=== PATIENT | female | born 1935 | race Native Hawaiian/Other Pacific Islander ===

== ENCOUNTER 2017-05-24 15:24 | Emergency (ER) | payer MEDICARE, OTHER ==
[2017-05-24 15:25] VITALS: BMI 22.4
--- NOTE | 2017-05-24 15:38 | ED PDOC ---
Arrival/HPI - General Chief Complaint: Trauma Time Seen by Provider: 05/24/17 15:27 Historian: Patient, Family (Daughter) - History of Present Illness Time/Duration: Prior to Arrival Symptom Onset: Sudden Symptom Course: Unchanged Severity Level: Mild Associated Symptoms (Text): 05/24/17 15:35 Patient reports that she was in the bathroom reaching over for some toilet paper when she lost her balance slipped and fell with a mechanical fall backwards into the shower knocking the shower curtain and the curtain michelle to the ground. She injured her right hip and right hand and head. No loss of consciousness syncope dizziness lightheadedness numbness tingling or paresthesias. No neck or low back pain. No chest pain palpitations or dyspnea. No abdominal pain nausea or vomiting. No other injury or trauma. Past Medical History - Infectious Disease Hx of Infectious Diseases: None - Tetanus Immunization Tetanus Immunization: Unknown - Reproductive Menopause: Yes - Cardiac Hx Hypertension: Yes Hx Pacemaker: No - Neurological Hx Paralysis: No - Endocrine/Metabolic Hx Diabetes Mellitus Type 2: Yes - Hematological/Oncological Hx Blood Transfusions: No - Musculoskeletal/Rheumatological Hx Musculoskeletal Disorders: No - Psychiatric Hx Emotional Abuse: No Hx Physical Abuse: No Hx Substance Use: No - Surgical History Hx Coronary Stent: Yes - Anesthesia Hx Anesthesia: Yes Hx Anesthesia Reactions: No Hx Malignant Hyperthermia: No - Suicidal Assessment Feels Threatened In Home Enviroment: No Family/Social History - Physician Review Nursing Documentation Reviewed: Yes Family/Social History: Unknown Family HX Smoking Status: Never Smoked Hx Alcohol Use: No Hx Substance Use: No Hx Substance Use Treatment: No Allergies/Home Meds Allergies/Adverse Reactions: Allergies No Known Allergies Allergy (Verified 05/24/17 15:34) Home Medications: Home Meds Medication Instructions Recorded Confirmed Aspirin 81 mg PO HS 01/23/13 05/24/17 Atorvastatin [Lipitor] 10 mg PO HS 01/23/13 05/24/17 Losartan Potassium 100 mg PO DAILY 01/23/13 05/24/17 Metformin Hydrochloride [Metformin] 500 mg PO BID 01/23/13 05/24/17 Metoprolol Succinate 100 mg PO DAILY 01/23/13 05/24/17 Review of Systems - Physician Review All systems were reviewed & negative as marked: Yes - Review of Systems Constitutional: Normal Respiratory: Normal Cardiovascular: Normal Gastrointestinal: Normal Genitourinary Female: Normal Neurological: Normal Physical Exam Vital Signs Temp Pulse Resp BP Pulse Ox 05/24/17 16:22 97.6 F 05/24/17 15:25 67 16 153/70 H 100 Temperature: Afebrile Blood Pressure: Hypertensive Pulse: Regular Respiratory Rate: Normal Appearance: Positive for: Well-Appearing, Non-Toxic, Comfortable Pain Distress: Mild Mental Status: Positive for: Alert and Oriented X 3 - Systems Exam Head: Present: Atraumatic, Normocephalic Pupils: Present: PERRL Extroacular Muscles: Present: EOMI Conjunctiva: Present: Normal Ears: Present: NORMAL TM, Normal Canal. No: Erythema Mouth: Present: Moist Mucous Membranes Pharnyx: No: ERYTHEMA, EXUDATE, TONSILS ENLARGED Neck: Present: Normal Range of Motion Respiratory/Chest: Present: Clear to Auscultation, Good Air Exchange. No: Respiratory Distress, Accessory Muscle Use, Tender to Palpation Cardiovascular: Present: Regular Rate and Rhythm, Normal S1, S2. No: Murmurs Abdomen: Present: Normal Bowel Sounds. No: Tenderness, Distention, Peritoneal Signs, Rebound, Guarding Back: Present: Normal Inspection. No: CVA Tenderness, Midline Tenderness, Paraspinal Tenderness Upper Extremity: Present: Normal ROM, NORMAL PULSES, Neurovascularly Intact, Other (Right fifth metacarpal ecchymosis with no tenderness no swelling and full range of motion). No: Cyanosis, Edema, Tenderness, Swelling, Erythema, Deformity Lower Extremity: Present: Normal Inspection, Normal ROM, Tenderness, Neurovascularly Intact, Other (Plus\minus left posterior lateral hip tenderness with no swelling and no skin changes. Full range of motion.). No: Edema, CALF TENDERNESS, Swelling, Erythema, Deformity Neurological: Present: GCS=15, CN II-XII Intact, Speech Normal, Motor Func Grossly Intact, Normal Cerebellar Funct Skin: Present: Warm, Dry, Normal Color. No: Rashes Medical Decision Making - RAD Interpretation Radiology Orders: 05/24/17 15:33 Hip Right [HIP MIN 2V W/ PELVIS RT] [RAD] Stat 05/24/17 15:34 HEAD W/O CONTRAST [CT] Stat HAND RIGHT 3 VIEWS [RAD] Stat CT scan of the head is read by the radiologist shows no acute findings. Right hand 3 view shows no fracture or dislocation. Right hip and pelvis shows no fracture or dislocation. [employer]: Radiologist Disposition/Present on Arrival - Present on Arrival Any Indicators Present on Arrival: No History of DVT/PE: No History of Uncontrolled Diabetes: No Urinary Catheter: No History of Decub. Ulcer: No History Surgical Site Infection Following: None - Disposition Have Diagnosis and Disposition been Completed?: Yes Diagnosis: Head contusion, Hand contusion, Contusion, hip Disposition: HOME/ ROUTINE Disposition Time: 16:43 Patient Plan: Discharge Condition: GOOD Discharge Instructions (ExitCare): Contusion (DC) Additional Instructions: Rest and ice. Tylenol or Advil as directed on bottle as needed. Fill prescription for Ultram as needed. Follow-up with PMD. Follow up in ER as needed. Prescriptions: Tramadol HCl [Ultram] 50 mg PO Q6 PRN #14 tab PRN Reason: Pain Forms: [facility] (Czech)
--- NOTE | 2017-05-24 16:13 | CT ---
PROCEDURE: CT HEAD WITHOUT CONTRAST. HISTORY: trauma COMPARISON: Comparison is made with 01/23/2013 TECHNIQUE: Axial computed tomography images were obtained through the head/brain without intravenous contrast. Radiation dose: Total exam DLP = 741.61 mGy-cm. This CT exam was performed using one or more of the following dose reduction techniques: Automated exposure control, adjustment of the mA and/or kV according to patient size, and/or use of iterative reconstruction technique. FINDINGS: HEMORRHAGE: No intracranial hemorrhage. BRAIN: No mass effect or edema. Lwyl-nt-mfkxtryl atrophy is noted. Mild chronic microvascular white matter ischemic disease is also noted. VENTRICLES: Unremarkable. No hydrocephalus. CALVARIUM: Unremarkable. PARANASAL SINUSES: Unremarkable as visualized. No significant inflammatory changes. MASTOID AIR CELLS: Unremarkable as visualized. No inflammatory changes. OTHER FINDINGS: None. IMPRESSION: O evidence of acute intracranial hemorrhage mass effect or midline shift.
[2017-05-24 16:22] VITALS: TEMP 97.6
[2017-05-24 17:04] VITALS: BP 165/57; PULSE 62; RESP 18; O2SAT 97
--- NOTE | 2017-05-24 19:40 | RAD ---
PROCEDURE: Right Hip Radiographs. HISTORY: fall COMPARISON: None. FINDINGS: BONES: Normal. No fracture. JOINTS: Omnx-ja-ghzemkib osteoarthritic changes. SOFT TISSUES: Normal. OTHER FINDINGS: None. IMPRESSION: No evidence of acute fracture or dislocation.
--- NOTE | 2017-05-24 21:48 | RAD ---
PROCEDURE: Right Hand Radiographs. HISTORY: trauma COMPARISON: None. FINDINGS: BONES: Normal. No fracture. JOINTS: Arthritic degenerative changes are noted. SOFT TISSUES: Normal. OTHER FINDINGS: None. IMPRESSION: No evidence of acute fracture or dislocation. Arthritic degenerative changes.
== END 2017-05-24 17:05 | disposition home or self-care (01) ==
LOC: ED 15:24
DX: S70.01XA Contusion of right hip, initial encounter (principal); S60.221A Contusion of right hand, initial encounter; S00.93XA Contusion of unspecified part of head, initial encounter; W18.2XXA Fall in (into) shower or empty bathtub, initial encounter; I10 Essential (primary) hypertension; E11.9 Type 2 diabetes mellitus without complications

== ENCOUNTER 2017-09-07 05:50 | Day surgery (SDC) | payer OTHER ==
--- NOTE | 2017-09-07 06:07 | ED PDOC ---
Arrival/HPI - General Chief Complaint: Chest Pain Time Seen by Provider: 09/07/17 06:03 Historian: Patient, Family (Daughter) - History of Present Illness Narrative History of Present Illness (Text): 09/07/17 06:07 Fany Noriega is an 81 year old female, whose past medical history includes CAD with 3 coronary stents, hypertension, hyperlipidemia, and diabetes, who presents to the Emergency department complaining of chest pain. Patient states she began experiencing mid-sternal chest pain with associated shortness of breath for the past 3 hours. Patient denies any fever, chills, nausea, vomiting , back pain, neck pain, headache, dizziness, lower extremity pain, or any other complaints. Time/Duration: 1-3 hours (3 hours [employer]) Symptom Onset: Gradual Symptom Course: Unchanged Activities at Onset: Light Context: Home Past Medical History - Provider Review Nursing Documentation Reviewed: Yes - Infectious Disease Hx of Infectious Diseases: None - Tetanus Immunization Tetanus Immunization: Unknown - Cardiac Hx Hypertension: Yes Hx Pacemaker: No - Neurological Hx Paralysis: No - Endocrine/Metabolic Hx Diabetes Mellitus Type 2: Yes - Hematological/Oncological Hx Blood Transfusions: No - Musculoskeletal/Rheumatological Hx Musculoskeletal Disorders: No - Psychiatric Hx Emotional Abuse: No Hx Physical Abuse: No Hx Substance Use: No - Surgical History Hx Coronary Stent: Yes - Anesthesia Hx Anesthesia: Yes Hx Anesthesia Reactions: No Hx Malignant Hyperthermia: No - Suicidal Assessment Feels Threatened In Home Enviroment: No Family/Social History - Physician Review Nursing Documentation Reviewed: Yes Family/Social History: Unknown Family HX Smoking Status: Never Smoked Hx Alcohol Use: No Hx Substance Use: No Hx Substance Use Treatment: No Allergies/Home Meds Allergies/Adverse Reactions: Allergies No Known Allergies Allergy (Verified 05/24/17 15:34) Home Medications: Home Meds Medication Instructions Recorded Confirmed Aspirin 81 mg PO HS 01/23/13 09/07/17 Atorvastatin [Lipitor] 10 mg PO HS 01/23/13 09/07/17 Losartan Potassium 100 mg PO DAILY 01/23/13 09/07/17 Metformin Hydrochloride [Metformin] 500 mg PO BID 01/23/13 09/07/17 Metoprolol Succinate 100 mg PO DAILY 01/23/13 09/07/17 Review of Systems - Physician Review All systems were reviewed & negative as marked: Yes - Review of Systems Constitutional: Normal. absent: Fevers Eyes: Normal ENT: Normal Respiratory: SOB. absent: Cough Cardiovascular: Chest Pain Gastrointestinal: Normal. absent: Abdominal Pain, Diarrhea, Nausea, Vomiting Genitourinary Female: Normal. absent: Dysuria, Frequency, Hematuria, Urine Output Changes Musculoskeletal: Normal. absent: Back Pain, Neck Pain Skin: Normal. absent: Rash Neurological: Normal. absent: Headache, Dizziness Endocrine: Normal Hemo/Lymphatic: Normal Psychiatric: Normal Physical Exam Vital Signs Reviewed: Yes Temperature: Afebrile Blood Pressure: Normal Pulse: Regular Respiratory Rate: Normal Appearance: Positive for: Well-Appearing, Non-Toxic, Comfortable Pain Distress: None Mental Status: Positive for: Alert and Oriented X 3 - Systems Exam Head: Present: Atraumatic, Normocephalic Pupils: Present: PERRL Extroacular Muscles: Present: EOMI Conjunctiva: Present: Normal Mouth: Present: Moist Mucous Membranes Neck: Present: Normal Range of Motion Respiratory/Chest: Present: Clear to Auscultation, Good Air Exchange. No: Respiratory Distress, Accessory Muscle Use Cardiovascular: Present: Regular Rate and Rhythm, Normal S1, S2. No: Murmurs Abdomen: No: Tenderness, Distention, Peritoneal Signs Back: Present: Normal Inspection Upper Extremity: Present: Normal Inspection. No: Cyanosis, Edema Lower Extremity: Present: Normal Inspection. No: Edema Neurological: Present: GCS=15, CN II-XII Intact, Speech Normal Skin: Present: Warm, Dry, Normal Color. No: Rashes Psychiatric: Present: Alert, Oriented x 3, Normal Insight, Normal Concentration Medical Decision Making ED Course and Treatment: 09/07/17 06:07 Impression: 81 year old female presents for chest pain and shortness of breath for 3 hours prior to arrival. Plan: -- EKG -- Chest X-ray -- Labs, cardiac enzymes, BNP, D-dimer -- Aspirin -- Reassess and disposition Progress Notes: Reviewed EKG, NSR at [address] Non-specific ST/T wave changes. 09/07/17 07:00 Case endorsed to /pending labs/CXR/reassess/final disposition - RAD Interpretation Radiology Orders: 09/07/17 06:11 CHEST PORTABLE [RAD] Stat - EKG Interpretation Interpreted by ED Physician: Yes Type: 12 lead EKG - Medication Orders Current Medication Orders: Discontinued Medications Aspirin (Aspirin) 325 mg PO ONCE STA Stop: 09/07/17 06:13 - Scribe Statement The provider has reviewed the documentation as recorded by the Peg Colon Provider Scribe Attestation: All medical record entries made by the Scribe were at my direction and personally dictated by me. I have reviewed the chart and agree that the record accurately reflects my personal performance of the history, physical exam, medical decision making, and the department course for this patient. I have also personally directed, reviewed, and agree with the discharge instructions and disposition. Disposition/Present on Arrival - Present on Arrival Any Indicators Present on Arrival: No History of DVT/PE: No History of Uncontrolled Diabetes: No Urinary Catheter: No History of Decub. Ulcer: No History Surgical Site Infection Following: None - Disposition Have Diagnosis and Disposition been Completed?: No Diagnosis: Chest pain Disposition Time: 07:00 Condition: STABLE Discharge Instructions (ExitCare): Chest Pain (ED) Forms: [facility] (Palauan)
[2017-09-07 06:37] LABS: HEMOGLOBIN 11.3 g/dL (12.0-16.0); MEAN CELL VOLUME 92.1 fl (80.0-105.0); MEAN CORPUSCULAR HEMOGLOBIN 30.8 pg (25.0-35.0); MEAN CORPUSCULAR HGB CONC 33.4 g/dl (31.0-37.0); MEAN PLATELET VOLUME 10.8 fl (7.0-11.0); RBC 3.67 10^6/uL (3.5-6.1); RED CELL DISTRIBUTION WIDTH 14.9 % (11.5-14.5); WHITE BLOOD COUNT 4.4 10^3/ul (4.5-11.0)
[2017-09-07 06:42] LABS: CALCIUM 9.8 mg/dL (8.4-10.5); GFR AFRICAN-AMERICAN > 60; GFR NON-AFRICAN AMERICAN > 60
[2017-09-07 06:48] LABS: ALB/GLOB RATIO 1.4 (1.1-1.8); ALBUMIN 4.1 g/dL (3.0-4.8); ALT/SGPT 22 U/L (7-56); AST/SGOT 44 U/L (14-36); BLOOD UREA NITROGEN 21 mg/dL (7-21)
[2017-09-07 06:54] LABS: B-TYPE NATRIURETIC PEPTIDE 601 pg/mL (0-450)
[2017-09-07 07:01] LABS: TROPONIN I 0.02 ng/mL
--- NOTE | 2017-09-07 08:07 | ED PDOC ---
Physical Exam Vital Signs Reviewed: Yes Vital Signs Temp Pulse Resp BP Pulse Ox 09/07/17 09:06 54 L 18 130/67 99 09/07/17 07:57 98.7 F 55 L 17 158/62 H 100 09/07/17 05:54 98.2 F 56 L 18 156/77 H 99 Temperature: Afebrile Blood Pressure: Hypertensive Pulse: Bradycardic Respiratory Rate: Normal Medical Decision Making ED Course and Treatment: 09/07/17 08:06 Patient endorsed to me by Dr. Valladares, pending chest xray and lab results. 09/07/17 09:[address] Duran, who accepts admission to telemetry observation. Patient scheduled to go to [facility] as per Dr. Robertson. I have discussed the plan with the patient, who expresses understanding. arise. - Lab Interpretations Lab Results: 09/07/17 06:10 09/07/17 06:10 Lab Results 09/07/17 08:20: PT 11.5, INR 1.00, APTT 39.6 H, D-Dimer, Quantitative < 200 09/07/17 06:10: WBC 4.4 L, RBC 3.67, Hgb 11.3 L, Hct 33.8 L, MCV 92.1, MCH 30.8 , MCHC 33.4, RDW 14.9 H, Plt Count 192, MPV 10.8 09/07/17 06:10: Sodium 143, Potassium 4.5, Chloride 108 H, Carbon Dioxide 25, Anion Gap 14, BUN 21, Creatinine 0.7, Est GFR ( Amer) > 60, Est GFR (Non- Af Amer) > 60, Random Glucose 100, Calcium 9.8, Total Bilirubin 0.9, AST 44 H, ALT 22, Alkaline Phosphatase 55, Lactate Dehydrogenase 657, Total Creatine Kinase 44, Troponin I 0.02 D, NT-Pro-B Natriuret Pep 601 H, Total Protein 7.1, Albumin 4.1, Globulin 3.0, Albumin/Globulin Ratio 1.4 - RAD Interpretation Radiology Orders: 09/07/17 06:11 CHEST PORTABLE [RAD] Stat - Medication Orders Current Medication Orders: Discontinued Medications Aspirin (Aspirin) 325 mg PO ONCE STA Stop: 09/07/17 06:13 Last Admin: 09/07/17 07:04 Dose: 325 mg - Scribe Statement The provider has reviewed the documentation as recorded by the Timibdona Roque Provider Scribe Attestation: All medical record entries made by the Scribe were at my direction and personally dictated by me. I have reviewed the chart and agree that the record accurately reflects my personal performance of the history, physical exam, medical decision making, and the department course for this patient. I have also personally directed, reviewed, and agree with the discharge instructions and disposition. Disposition/Present on Arrival - Present on Arrival Any Indicators Present on Arrival: No History of DVT/PE: No History of Uncontrolled Diabetes: No Urinary Catheter: No History of Decub. Ulcer: No History Surgical Site Infection Following: None - Disposition Have Diagnosis and Disposition been Completed?: Yes Diagnosis: Chest pain Disposition Time: 09:00 Patient Problems: Current Active Problems Problem Status Onset Chest pain Acute Condition: STABLE
[2017-09-07 08:52] LABS: D DIMER < 200 ng/mL (0-243); PARTIAL THROMBOPLASTIN TIME 39.6 Seconds (25.1-36.5); PROTHROMBIN TIME 11.5 SECONDS (9.4-12.5)
--- NOTE | 2017-09-07 09:50 | CARD ---
APPROVED REPORT EKG Measurement Heart [id number] <Conclusion> Normal sinus rhythm Normal ECG No change
[2017-09-07] MEDS ORDERED: Lidocaine 2% Inj (20ml) ONE (09:56)
[2017-09-07] MEDS ORDERED: Iodixanol 320 MG/ML 200 ML BOTTLE IV ONE (09:56)
[2017-09-07] MEDS ORDERED: Midazolam 2 MG/2 ML VIAL ONE ×2 (10:24→10:46)
[2017-09-07] MEDS ORDERED: Iohexol 350mgl/ml 50 ML ONE (10:58)
--- NOTE | 2017-09-07 11:28 | RAD ---
HISTORY: sob COMPARISON: Comparison made with PET-CT scan dated 08/18/[address] scan of the chest dated 06/18/2017. . FINDINGS: LUNGS: Previously noted neoplasm right upper lobe is not well delineated on this study. Please refer to PET-CT scan and corresponding report for additional details. Suspect minor bibasilar atelectasis. PLEURA: No significant pleural effusion identified, no pneumothorax apparent. CARDIOVASCULAR: Heart appears enlarged. Mitral valve calcification and coronary artery calcifications are again seen. OSSEOUS STRUCTURES: No significant abnormalities. VISUALIZED UPPER ABDOMEN: Normal. OTHER FINDINGS: None. 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 Please refer to prior PET-CT scan and CT scan chest dated 08/18/2017 and 06/18/2017 respectively suspect minor bibasilar atelectasis. Cardiomegaly.
[2017-09-07] MEDS ORDERED: Sodium Chloride 0.9% 1,000 ML IV SCH (11:30)
--- NOTE | 2017-09-07 14:10 | CARDCATH ---
PROCEDURE DATE: 09/07/2017 HISTORY: The patient is an 81-year-old woman who presented to the Emergency Room with progressive shortness of breath and angina. The patient has multiple cardiac risk factors and has multiple stents in the past. Because of her progression of symptoms at rest, the patient was brought up for an urgent cardiac catheterization. PROCEDURE: Left heart catheterization with coronary arteriography, left ventriculogram, and percutaneous transluminal coronary angioplasty of right coronary artery. The right femoral artery was cannulated with a 6-Green[place]ic sheath. There were no complications. I performed moderate sedation, which included the presence of an independent trained observer that assisted in monitoring the patient's level of consciousness and physiologic status. After administration of Versed and fentanyl, my intra-service time was 30 minutes. The findings on catheterization revealed a left main artery that was heavily calcified without critical lesions. The LAD was heavily calcified and revealed a patent stent in the proximal portion. There was a 40%-50% stenosis in the midportion of the LAD. The circumflex artery was occluded at its ostium, at the previous stent site. The RCA was a dominant vessel and revealed a patent stent in the proximal and midportion. In between the two stents, there was an eccentric 80% stenosis noted. LV function was normal with an EF of 60%. The patient was started on intravenous Angiomax under fluoroscopic guide, the guiding catheter was placed in the ostium of the of the RCA and 0.014 ATW wire was used to cross the lesion. A 3.5 x 8 mm bare-metal stent was placed and deployed at 15 atmospheres of pressure. Postdilatation was performed with a 4 noncompliant balloon. Repeat coronary arteriography revealed an excellent result with no residual stenosis and LEO 3 flow. Angio-Seal was used to close the femoral artery site. The patient tolerated the procedure well. In summary, the procedure was successful PTCA and stent of an 80% mid RCA stenosis with a bare-metal stent. A bare-metal stent was used because of the potential for a biopsy of a lung mass, which will be done next month. Cardiac catheterization reveals new 80% stenosis in the RCA, which was stented with a bare-metal stent. An occluded circumflex artery. Patent stents in the LAD and RCA. Normal LV function. Given these findings, the patient will need to be on aspirin and Plavix with Plavix for 1 month. After this, the patient can go for her biopsy if necessary. Sal Robertson MD
--- NOTE | 2017-09-07 15:13 | CARD ---
APPROVED REPORT EKG Measurement Heart [id number] <Conclusion> Sinus bradycardia Otherwise normal ECG
[2017-09-08 03:40] VITALS: O2SAT 98
[2017-09-08 04:55] VITALS: BMI 20.9
[2017-09-08 06:30] LABS: BASO # 0.04 K/mm3 (0.0-2.0); BASO % 0.8 % (0.0-3.0); EOS # 0.5 (0.0-0.7); EOS % 9.3 % (1.5-5.0); GRAN # 2.85 (1.4-6.5); GRAN % 57.4 % (50.0-68.0); LYMPH # 1.1 (1.2-3.4); MEAN CELL VOLUME 90.6 fl (80.0-105.0); MEAN CORPUSCULAR HEMOGLOBIN 29.6 pg (25.0-35.0); MEAN CORPUSCULAR HGB CONC 32.7 g/dl (31.0-37.0); MEAN PLATELET VOLUME 10.1 fl (7.0-11.0); MONO # 0.5 (0.1-0.6); MONO % 9.5 % (1.0-6.0); RBC 3.71 10^6/uL (3.5-6.1); RED CELL DISTRIBUTION WIDTH 14.8 % (11.5-14.5)
[2017-09-08 07:22] LABS: BLOOD UREA NITROGEN 17 mg/dL (7-21); CALCIUM 9.1 mg/dL (8.4-10.5); GFR AFRICAN-AMERICAN > 60; GFR NON-AFRICAN AMERICAN > 60
[2017-09-08] MEDS ORDERED: Metoprolol Succinate 100 mg XL Tab PO SCH (10:00)
--- NOTE | 2017-09-08 10:53 | HP ---
HISTORY OF PRESENT ILLNESS: The patient is 81 years old, known to me from office. According to daughter, she had chest discomfort this morning, initially thought she get better, but did not improve so daughter brought her to emergency room for further evaluation. No fever. No chills. No nausea or vomiting. Does complain of feeling weak, dizzy, lightheaded at times. Patient had stress test done almost 2 to 3 years ago that was found to be abnormal with partial reversible ischemia. Patient has previous catheterization with stent placement. Given the patient's multiple comorbidities, she was taken to lab[facility] by Dr. Robertson and had RCA angioplasty done. PAST MEDICAL HISTORY: Significant for; 1. Hypertension. 2. Hyperlipidemia. 3. Recently diagnosed lung mass. 4. Mxr-yobzvlk-ggqypfnsi diabetes. 5. Chronic vertigo. SOCIAL HISTORY: Denies smoking, drinking, alcohol use. She is , lives with her who also has multiple medical issues. ALLERGIES: SHE IS NOT ALLERGIC TO ANY MEDICATIONS. MEDICATIONS: At home, she is on tramadol 50 mg every 6 hours p.r.n., metoprolol 100 mg daily, metformin 500 twice a day, losartan 50 mg daily, folic acid 1 mg daily, fenofibrate 160 mg daily, Plavix 75 daily, vitamin D, atorvastatin 10 mg at bedtime, aspirin 81 daily. REVIEW OF SYSTEMS: Patient is currently after she came back from cardiac cath. PHYSICAL EXAMINATION: GENERAL: She is sleepy, but arousable. VITAL SIGNS: Patient is afebrile, pulse 106, respirations 18, blood pressure 135/58. LUNGS: Bilateral good airflow. No rhonchi or crackle. HEART: S1, S2 audible. ABDOMEN: Soft, nontender. No rebound. No guarding. NEUROLOGICAL: Patient is awake and alert, able to communicate. EXTREMITIES: Bilateral legs, no edema. LABORATORY DATA: WBC 4.4, hemoglobin 11.3, hematocrit 33.8, platelet of 192. PT 11.5, INR 1. Chemistry: Sodium 143, potassium 4.5, chloride 108, CO2 of 25, BUN 21, creatinine 0.7. Blood sugar . LFTs are within normal limits. BNP is 601. ASSESSMENT: 1. Chest pain, status post cardiac catheterization, underwent right coronary artery angioplasty. Proximal stent was patent. Between two stents, she has eccentric 80% stenosis. This patient is scheduled to have lung biopsy done, so bare-metal stent was placed. 2. Vew-xrpluhx-pnhuzznzy diabetes. 3. Hypertension. 4. Hyperlipidemia. PLAN: Patient is being admitted, monitor her electrolytes and monitor her blood sugar. If patient remains stable, she will be discharged in a.m. Melissa Duran MD
--- NOTE | 2017-09-08 14:03 | CARD ---
APPROVED REPORT EKG Measurement Heart [id number] [place] [id number] <Conclusion> Sinus bradycardia Otherwise normal ECG
[2017-09-08 14:47] VITALS: BP 174/61; PULSE 80; RESP 18; TEMP 98.9
--- NOTE | 2017-09-08 15:21 | PN ---
DATE: 09/08/2017 CARDIOLOGY FOLLOWUP SUBJECTIVE: The patient is chest pain free. PHYSICAL EXAMINATION: VITAL SIGNS: Blood pressure 159/56, heart rate is in the 60s, normal sinus rhythm. NECK: Negative JVD. LUNGS: Without rales. HEART: Reveals S1, S2. EXTREMITIES: Without edema. Right groin site is stable. LABORATORY DATA: Hemoglobin is 11. Chemistries: BUN and creatinine are unremarkable. IMPRESSION: 1. Stable post percutaneous transluminal coronary angioplasty and stent of a right coronary artery with a bare-metal stent. 2. Multivessel coronary artery disease. 3. Patent stents in the left anterior descending and right coronary artery with an occluded circumflex artery. 4. Normal left ventricular function. 5. Diabetes mellitus. PLAN: Given these findings, the patient is stable for discharge from a cardiac perspective. She needs to remain on aspirin indefinitely and Plavix for at least a month and undergo a strict cardiac risk reduction program. Sal Robertson MD
--- NOTE | 2017-09-09 00:42 | DS ---
HISTORY OF PRESENT ILLNESS: The patient is 81 years old, who came in with chest pain yesterday, was taken to labor economics professor by Dr. Robertson, was found to have patent stent on RCA, but midportion was stented since it was 80% clogged. Patient was seen and examined, doing well. No chest pain. No shortness of breath. Eating and tolerating. PHYSICAL EXAMINATION: VITAL SIGNS: She is afebrile, pulse 56, respirations 20, blood pressure 159/56. LUNGS: Bilateral fair airflow. No rhonchi or crackle. HEART: S1 and S2 audible. ABDOMEN: Soft and nontender. No rebound. No guarding. NEUROLOGIC: She is awake, alert, oriented, communicative. LABORATORY DATA: WBC is 5, hemoglobin 11, hematocrit 33.6, platelets 188. Chemistry: Sodium 142, potassium 4.1, chloride 109, CO2 of 25, BUN 17, creatinine 0.7. Blood sugar of 105. ASSESSMENT: 1. Chest pain, status post cardiac catheterization and has right coronary artery stenting done. 2. History of lung mass. Patient underwent catheterization, has bare-metal stent. During the process of getting biopsy of lung mass, it has to be held for a month while she is on Plavix. 3. Ebt-jevoltm-ceeqhciyo diabetes. 4. Hypertension. 5. Hyperlipidemia. PLAN: Patient will be discharged today. Patient will resume her medication including Toprol, Plavix, aspirin, metformin and I will follow up patient in office in a week. Melissa Duran MD
== END 2017-09-08 17:11 | disposition home or self-care (01) ==
LOC: ED 05:50 → UNDOADMIN 08:56 → ERH 08:56 → CATH 09:15 → 2RSO 11:39 → CATH 09-08 17:11
PROVIDERS: ATTEND Internal Medicine Cardiovascular Disease
DX: I25.10 Atherosclerotic heart disease of native coronary artery without angina pectoris (principal); I10 Essential (primary) hypertension; E78.5 Hyperlipidemia, unspecified; E11.9 Type 2 diabetes mellitus without complications; R91.8 Other nonspecific abnormal finding of lung field; Z79.02 Long term (current) use of antithrombotics/antiplatelets; Z79.82 Long term (current) use of aspirin; Z95.5 Presence of coronary angioplasty implant and graft
CPT/HCPCS: 36415; 71045; 80048; 80053; 82550; 82948; 83615; 83880; 84484; 85025; 85027; 85378; 85610; 85730; 92928; 93005 ×2; 93458; 99152; 99153; 99285; C1725; C1760; C1769 ×2; C1887; C2629; J0583; J1644; J2250; J3010; J7030; J7040; Q9966; Q9967

== ENCOUNTER 2017-11-30 11:25 | Observation (INO) | payer OTHER ==
[2017-11-30 11:25] VITALS: BMI 20.9
[2017-11-30 12:13] LABS: BASO # 0.02 K/mm3 (0.0-2.0); BASO % 0.4 % (0.0-3.0); EOS # 0.3 (0.0-0.7); EOS % 5.9 % (1.5-5.0); GRAN # 3.13 (1.4-6.5); GRAN % 61.7 % (50.0-68.0); HEMOGLOBIN 10.6 g/dL (12.0-16.0); LYMPH # 1.2 (1.2-3.4); LYMPH % 23.7 % (22.0-35.0); MEAN CELL VOLUME 90.4 fl (80.0-105.0); MEAN CORPUSCULAR HEMOGLOBIN 29.8 pg (25.0-35.0); MEAN CORPUSCULAR HGB CONC 32.9 g/dl (31.0-37.0); MEAN PLATELET VOLUME 10.9 fl (7.0-11.0); MONO # 0.4 (0.1-0.6); MONO % 8.3 % (1.0-6.0); RBC 3.56 10^6/uL (3.5-6.1); RED CELL DISTRIBUTION WIDTH 15.1 % (11.5-14.5); WHITE BLOOD COUNT 5.1 10^3/ul (4.5-11.0)
--- NOTE | 2017-11-30 12:18 | ED PDOC ---
Arrival/HPI - General Historian: Patient, Family - History of Present Illness Time/Duration: 24 hours Symptom Onset: Sudden Symptom Course: Unchanged Quality: Pressure Severity Level: 6 <Jose Luis Corona - Last Filed: 11/30/17 18:38> <Derek Alfonso DO - Last Filed: 12/02/17 18:54> - General Chief Complaint: Chest Pain Time Seen by Provider: 11/30/17 11:30 - History of Present Illness Narrative History of Present Illness (Text): 11/30/17 12:09 81 yo F with past medical history of CAD w/ 3 stents, HTN, HLD, T2DM, presenting to the emergency department with acute onset chest pain x 1 day s/p R lung biopsy (11/27/17). Per patient, she began feeling dizzy 1 day after her R lung biopsy on Thursday, began experiencing R sided chest pain on Thursday night at ~2AM. Pain was acute in onset, described as a constant pressure with radiation across the chest and to the back, rates 6/10 in severity. She denies any palpitations or shortness of breath. No other acute complaints at this time, not in any acute distress. No fevers/chills, headaches, dizziness, nausea/vomiting/diarrhea/constipation, dysuria, or changes in stool. PMHx: CAD w/ stent placement, HTN, HLD, DM PSHx: stent placement x3 (LAD, RCA), R lung biopsy (11/27/17) Allergies: NKDA Home Medications: ASA 18 mg PO daily, Atorvastatin 10 mg PO daily, Plavix 75 mg PO daily, Vitamin D2 1 tablet daily, Fenofibrate 160 mg PO daily, Folic acid 1 mg PO daily, Losartan 50 mg PO daily, Metformin 500 mg PO daily, Metoprolol 100 mg PO daily, multivitamins Social Hx: denies alcohol, tobacco, illicit drug use FHx: HTN, CHF PMD: Dr. Duran (Jose Luis Corona) 11/30/17 12:09 81 yo F with past medical history of CAD w/ 3 stents, HTN, HLD, T2DM, presenting to the emergency department with acute onset chest pain x 1 day s/p R lung biopsy (11/27/17). Per patient, she began feeling dizzy 1 day after her R lung biopsy on Thursday, began experiencing R sided chest pain on Thursday night at ~2AM. Pain was acute in onset, described as a constant pressure with radiation across the chest and to the back, rates 6/10 in severity. She denies any palpitations or shortness of breath. No other acute complaints at this time, not in any acute distress. No fevers/chills, headaches, dizziness, nausea/vomiting/diarrhea/constipation, dysuria, or changes in stool. PMHx: CAD w/ stent placement, HTN, HLD, DM PSHx: stent placement x3 (LAD, RCA), R lung biopsy (11/27/17) Allergies: NKDA Home Medications: ASA 18 mg PO daily, Atorvastatin 10 mg PO daily, Plavix 75 mg PO daily, Vitamin D2 1 tablet daily, Fenofibrate 160 mg PO daily, Folic acid 1 mg PO daily, Losartan 50 mg PO daily, Metformin 500 mg PO daily, Metoprolol 100 mg PO daily, multivitamins Social Hx: denies alcohol, tobacco, illicit drug use FHx: HTN, CHF PMD: Dr. Duran ([facility]) Past Medical History - Provider Review Nursing Documentation Reviewed: Yes - Travel History Have you recently traveled outside [place] w/in the past 3 mons?: No - Infectious Disease Hx of Infectious Diseases: None - Tetanus Immunization Tetanus Immunization: Unknown - Reproductive Menopause: Yes - Cardiac Hx Hypertension: Yes Hx Pacemaker: No - Pulmonary Hx Respiratory Disorders: No - Neurological Hx Neurological Disorder: No - HEENT Hx HEENT Disorder: No - Renal Hx Renal Disorder: No - Endocrine/Metabolic Hx Diabetes Mellitus Type 2: Yes - Hematological/Oncological Hx Blood Disorders: No - Musculoskeletal/Rheumatological Hx Musculoskeletal Disorders: No Hx Falls: Yes - Gastrointestinal Hx Gastrointestinal Disorders: No - Genitourinary/Gynecological Hx Genitourinary Disorders: No - Psychiatric Hx Emotional Abuse: No Hx Physical Abuse: No Hx Substance Use: No - Surgical History Hx Coronary Stent: Yes (x 3) - Anesthesia Hx Anesthesia: Yes Hx Anesthesia Reactions: No Hx Malignant Hyperthermia: No - Suicidal Assessment Feels Threatened In Home Enviroment: No <Jose Luis Corona - Last Filed: 11/30/17 18:38> Family/Social History - Physician Review Nursing Documentation Reviewed: Yes Family/Social History: Hypertension Smoking Status: Never Smoked Hx Alcohol Use: No Hx Substance Use: No Hx Substance Use Treatment: No <ChloeJose Luis - Last Filed: 11/30/17 18:38> Allergies/Home Meds <Jose Luis Corona - Last Filed: 11/30/17 18:38> <Kaden LEONDerek - Last Filed: 12/02/17 18:54> Allergies/Adverse Reactions: Allergies No Known Allergies Allergy (Verified 05/24/17 15:34) Home Medications: Home Meds Medication Instructions Recorded Confirmed RX: Atorvastatin [Lipitor] 10 mg PO HS 01/23/13 11/30/17 Aspirin [Ecotrin] 81 mg PO DAILY 09/07/17 11/30/17 Cholecalciferol [Vitamin D] 1.25 mg PO QWK 09/07/17 11/30/17 Fenofibrate [Triglide] 160 mg PO DAILY 09/07/17 11/30/17 Metformin HCl [Glucophage] 500 mg PO BID 09/07/17 11/30/17 Metoprolol Succinate [Toprol Xl] 100 mg PO DAILY 09/07/17 11/30/17 RX: Folic Acid 1 mg PO DAILY 09/07/17 11/30/17 RX: Losartan Potassium 50 mg PO DAILY 09/07/17 11/30/17 Multivitamin/Iron/Folic Acid 1 each PO DAILY 11/30/17 11/30/17 [Centrum Adults Tablet] Tramadol HCl/Acetaminophen 1 each PO TID PRN 12/01/17 12/01/17 [Ultracet Tablet] Review of Systems - Review of Systems Constitutional: Normal Eyes: Normal ENT: Normal Respiratory: Normal Cardiovascular: Chest Pain. absent: Palpitations, Edema, Calf Pain, Syncope Gastrointestinal: Normal. absent: Abdominal Pain, Constipation, Diarrhea, Nausea, Vomiting Genitourinary Female: Normal Musculoskeletal: Back Pain Skin: Normal Neurological: Dizziness Endocrine: Normal Hemo/Lymphatic: Normal Psychiatric: Normal <Jose Luis Corona - Last Filed: 11/30/17 18:38> - Physician Review All systems were reviewed & negative as marked: Yes <Derek Alfonso DO - Last Filed: 12/02/17 18:54> Physical Exam Vital Signs Reviewed: Yes Temperature: Afebrile Blood Pressure: Hypertensive Pulse: Regular Respiratory Rate: Normal Appearance: Positive for: Well-Appearing, Non-Toxic Pain Distress: Mild Mental Status: Positive for: Alert and Oriented X 3 - Systems Exam Head: Present: Atraumatic, Normocephalic Pupils: Present: PERRL Extroacular Muscles: Present: EOMI Conjunctiva: Present: Normal Mouth: Present: Moist Mucous Membranes Neck: Present: Normal Range of Motion Respiratory/Chest: Present: Clear to Auscultation, Good Air Exchange. No: Respiratory Distress, Wheezes, Rales, Rhonchi Cardiovascular: Present: Regular Rate and Rhythm, Normal S1, S2 Abdomen: Present: Normal Bowel Sounds. No: Tenderness, Distention, Rebound, Guarding, Mass/Organomegaly Upper Extremity: Present: Normal Inspection, Normal ROM, NORMAL PULSES, Capillary Refill < 2s. No: Edema, Tenderness, Swelling Lower Extremity: Present: Normal Inspection, NORMAL PULSES, Normal ROM, Capillary Refill < 2 s. No: Edema, CALF TENDERNESS Neurological: Present: CN II-XII Intact, Speech Normal Skin: Present: Warm, Dry, Normal Color Psychiatric: Present: Alert, Oriented x 3, Normal Insight, Normal Concentration <Jose Luis Corona - Last Filed: 11/30/17 18:38> Vital Signs Temp Pulse Resp BP Pulse Ox 11/30/17 17:19 97.8 F 63 20 133/61 96 11/30/17 15:34 98.4 F 64 17 135/55 L 97 11/30/17 14:07 68 18 124/50 L 98 11/30/17 11:35 98.4 F 11/30/17 11:34 60 18 169/60 H 100 Medical Decision Making - EKG Interpretation Interpreted by ED Physician: Yes Type: 12 lead EKG <Jose Luis Corona - Last Filed: 11/30/17 18:38> - RAD Interpretation [employer] Resource Specialist: Radiologist <Derek Alfonso DO - Last Filed: 12/02/17 18:54> ED Course and Treatment: 11/30/17 12:25 Impression: 81 year old female presents to the Emergency department for acute onset chest pain x 1 day s/p R lung biopsy (11/27/17). Patient Seen with Resident: In agreement with resident note which contains more details about the patient. Patient seen and evaluated with resident. Came up with plan and treatment together. Plan: -- EKG -- Labs -- X-Ray of chest -- Urinalysis -- Reassess and disposition Prior Visits: Notes and results from previous visits were reviewed. Patient was last seen in the emergency department on 09/07/17 complaining of chest pain. Patient was discharged in stable condition. Progress Notes: X-Ray of chest reviewed by radiologist, shows: Dictator : Dionisio Merino MD Report Date : 11/30/2017 12:45:50 FINDINGS: LUNGS: Previously noted spiculated mass density right upper lobe is vaguely seen. Lung parry otherwise clear. PLEURA: No definitive evidence of pneumothorax. CARDIOVASCULAR: Heart size upper limits of normal. OSSEOUS STRUCTURES: No significant abnormalities. VISUALIZED UPPER ABDOMEN: Normal. OTHER FINDINGS: None. IMPRESSION: Spiculated mass right upper lobe less well seen compared to high-resolution CT chest. Please refer to that study and corresponding report for additional details. No definitive evidence of pneumothorax. EKG: Ordered, reviewed, and independently interpreted the EKG. Rate : 70 BPM Rhythm : NSR Interpretation : No ST-segment elevations or depressions, no T-wave inversions, normal intervals. 11/30/17 13:[address] Duran, patient is being admitted to telemetry for observation. (Jose Luis Corona) 11/30/17 12:25 Impression: 81 year old female presents to the Emergency department for acute onset chest pain x 1 day s/p R lung biopsy (11/27/17). Patient Seen with Resident: In agreement with resident note which contains more details about the patient. Patient seen and evaluated with resident. Came up with plan and treatment toge ther. Plan: -- EKG -- Labs -- X-Ray of chest -- Urinalysis -- Reassess and disposition Prior Visits: Notes and results from previous visits were reviewed. Patient was last seen in the emergency department on 09/07/17 complaining of chest pain. Patient was discharged in stable condition. Progress Notes: X-Ray of chest reviewed by radiologist, shows: Dictator : Dionisio Merino MD Report Date : 11/30/2017 12:45:50 FINDINGS: LUNGS: Previously noted spiculated mass density right upper lobe is vaguely seen. Lung parry otherwise clear. PLEURA: No definitive evidence of pneumothorax. CARDIOVASCULAR: Heart size upper limits of normal. OSSEOUS STRUCTURES: No significant abnormalities. VISUALIZED UPPER ABDOMEN: Normal. OTHER FINDINGS: None. IMPRESSION: Spiculated mass right upper lobe less well seen compared to high-resolution CT chest. Please refer to that study and corresponding report for additional details. No definitive evidence of pneumothorax. -------- EKG: Ordered, reviewed, and independently interpreted the EKG. Rate : 70 BPM Rhythm : NSR Interpretation : No ST-segment elevations or depressions, no T-wave inversions, normal intervals. 11/30/17 13:[address] Duran, patient is being admitted to telemetry for observation. (Derek Alfonso DO) - Lab Interpretations Lab Results: 11/30/17 12:05 11/30/17 12:05 Lab Results 11/30/17 12:05: Sodium 139, Potassium 4.2, Chloride 106, Carbon Dioxide 27, Anion Gap 11, BUN 17, Creatinine 0.7, Est GFR ( Amer) > 60, Est GFR (Non- Af Amer) > 60, Random Glucose 109, Calcium 9.8, Magnesium 1.8, Total Bilirubin 0.6, AST 28, ALT 24, Alkaline Phosphatase 42, Lactate Dehydrogenase 400, Total Creatine Kinase 44, Troponin I < 0.01 D, Total Protein 6.5, Albumin 3.8, Globulin 2.7, Albumin/Globulin Ratio 1.4 11/30/17 12:05: WBC 5.1, RBC 3.56, Hgb 10.6 L, Hct 32.2 L, MCV 90.4, MCH 29.8, MCHC 32.9, RDW 15.1 H, Plt Count 161, MPV 10.9, Gran % 61.7, Lymph % (Auto) 23.7, [place] % (Auto) 8.3 H, Eos % (Auto) 5.9 H, Baso % (Auto) 0.4, Gran # 3.13, Lymph # (Auto) 1.2, [place] # (Auto) 0.4, Eos # (Auto) 0.3, Baso # (Auto) 0.02 - RAD Interpretation Radiology Orders: 11/30/17 11:38 CHEST PORTABLE [RAD] Stat - EKG Interpretation EKG Interpretation (Text): 11/30/17 12:23 NSR 70 bpm (Jose Luis Corona) 11/30/17 12:23 NSR 70 bpm (Derek Alfonso DO) - Medication Orders Current Medication Orders: Discontinued Medications Acetaminophen (Tylenol 325mg Tab) 650 mg PO Q6H PRN PRN Reason: Fever >100.4 F Aspirin (Ecotrin) 81 mg PO DAILY [facility] Last Admin: 12/01/17 10:00 Dose: 81 mg Atorvastatin Calcium (Lipitor) 10 mg PO HS [facility] Last Admin: 11/30/17 21:24 Dose: 10 mg Clopidogrel Bisulfate (Plavix) 75 mg PO DAILY [facility] Last Admin: 12/01/17 10:00 Dose: 75 mg Fenofibrate (Tricor) 145 mg PO DAILY [facility] Last Admin: 12/01/17 10:00 Dose: 145 mg Folic Acid (Folic Acid) 1 mg PO DAILY [facility] Last Admin: 12/01/17 10:00 Dose: 1 mg Insulin Human Lispro (Humalog Med) 0 units SC ACHS [facility]; Protocol Last Admin: 12/01/17 18:26 Dose: Not Given Non-Admin Reason: Blood Sugar Parameter Losartan Potassium (Cozaar) 50 mg PO DAILY [facility] Last Admin: 12/01/17 10:00 Dose: 50 mg MAR Pulse and Blood Pressure Document 12/01/17 10:00 GLI (Rec: 12/01/17 14:06 [place] [id number] Pulse Pulse Rate (60-90) 67 Blood Pressure Blood Pressure (100/60-150/90) 153/61 Meloxicam (Mobic) 15 mg PO DAILY [facility] Last Admin: 12/01/17 10:00 Dose: Not Given Non-Admin Reason: Patient Refused Metformin HCl (Glucophage) 500 mg PO BID [facility] Last Admin: 12/01/17 18:27 Dose: Not Given Non-Admin Reason: Patient Refused Metoprolol Succinate (Toprol Xl) 100 mg PO DAILY [facility] Last Admin: 12/01/17 10:00 Dose: 100 mg MAR Pulse and Blood Pressure Document 12/01/17 10:00 GLI (Rec: 12/01/17 14:08 GLI [id number]) Pulse Pulse Rate (60-90) 67 Blood Pressure Blood Pressure (100/60-150/90) 153/61 Multivitamins/Minerals (Therapeutic-M Tab) 1 tab PO DAILY [facility] Last Admin: 12/01/17 10:00 Dose: 1 tab Pneumococcal Polyvalent Vaccine (Pneumovax 23 Vaccine) 0.5 ml IM .ONCE ONE Stop: 11/30/17 19:20 <Jose Luis Corona - Last Filed: 11/30/17 18:38> - PA / ZIGZAG ELASTIC ATTACHER / Resident Statement HANDY has reviewed & agrees with the documentation as recorded. / has examined the patient and agrees with the treatment plan. - Scribe Statement The provider has reviewed the documentation as recorded by the Scribe <Derek Alfonso DO - Last Filed: 12/02/17 18:54> - Scribe Statement Maira Schulz All medical record entries made by the Scribe were at my direction and p ersonally dictated by me. I have reviewed the chart and agree that the record accurately reflects my personal performance of the history, physical exam, medical decision making, and the department course for this patient. I have also personally directed, reviewed, and agree with the discharge instructions and disposition. (Jose Luis Corona) Maira Schulz All medical record entries made by the Scribe were at my direction and personally dictated by me. I have reviewed the chart and agree that the record accurately reflects my personal performance of the history, physical exam, medical decision making, and the department course for this patient. I have also personally directed, reviewed, and agree with the discharge instructions and disposition. (Derek Alfonso DO) Disposition/Present on Arrival - Present on Arrival Any Indicators Present on Arrival: No History of DVT/PE: No History of Uncontrolled Diabetes: No Urinary Catheter: No History of Decub. Ulcer: No History Surgical Site Infection Following: None - Disposition Have Diagnosis and Disposition been Completed?: Yes Disposition Time: 17:15 <Jose Luis Corona - Last Filed: 11/30/17 18:38> <Derek Alfonso DO - Last Filed: 12/02/17 18:54> - Disposition Diagnosis: Chest pain Disposition: HOSPITALIZED Condition: STABLE
[2017-11-30 12:28] LABS: ALB/GLOB RATIO 1.4 (1.1-1.8); ALBUMIN 3.8 g/dL (3.0-4.8); ALT/SGPT 24 U/L (7-56); AST/SGOT 28 U/L (14-36); BLOOD UREA NITROGEN 17 mg/dL (7-21); CALCIUM 9.8 mg/dL (8.4-10.5); GFR NON-AFRICAN AMERICAN > 60
[2017-11-30 12:39] LABS: TROPONIN I < 0.01 ng/mL
--- NOTE | 2017-11-30 12:47 | RAD ---
Date of service: 11/30/2017 HISTORY: chest pain s/p lung biopsy on 11/27 COMPARISON: Comparison chest 09/07/2017 comparison also made with CT chest dated 06/18/2017. FINDINGS: LUNGS: Previously noted spiculated mass density right upper lobe is vaguely seen. Lung parry otherwise clear. PLEURA: No definitive evidence of pneumothorax. CARDIOVASCULAR: Heart size upper limits of normal. OSSEOUS STRUCTURES: No significant abnormalities. VISUALIZED UPPER ABDOMEN: Normal. OTHER FINDINGS: None. IMPRESSION: Spiculated mass right upper lobe less well seen compared to high-resolution CT chest. Please refer to that study and corresponding report for additional details. No definitive evidence of pneumothorax.
[2017-11-30] MEDS ORDERED: Non Formulary Medication (Fenofibrate [Triglide] 160 MG) PO SCH (17:45)
[2017-11-30] MEDS: Metoprolol Succinate 100 mg XL Tab PO SCH (18:41)
[2017-11-30] MEDS ORDERED: Influenza Vaccine 60 mcg/0.5 mL SYR (4YR UP) IM ONE (19:19)
[2017-11-30] MEDS ORDERED: Pneumococcal 23-Valent Vaccine IM ONE (19:19)
[2017-11-30] MEDS: Insulin Lispro (humaLOG) MEDIUM Coverage SC SCH (22:44)
--- NOTE | 2017-12-01 00:27 | HP ---
HISTORY OF PRESENT ILLNESS: The patient is 81 years old, known to me from office practice. The patient has right lung mass that she had biopsy done in [facility] by Dr. Mcrae. According to the patient's daughter, she was doing well post procedure, but this morning she started to have chest pain. The patient has right lung biopsy done on 01/27/2018. She also complained of feeling dizzy. Pain lead to the pressure-like symptoms radiation from chest, going towards the back. There is no associated shortness of breath or palpitation. No fever. No chills. No cough. No congestion. PAST MEDICAL HISTORY: Significant for, 1. Hypertension. 2. Hyperlipidemia. 3. Noninsulin-dependent diabetes. 4. History of coronary artery disease, status post angioplasty. 5. Angioplasty of LAD, RCA. 6. Recent one and half years ago diagnosed lung nodule that she has been postponing to have biopsy done. Initially agreed and had it done on 11/27/2017. ALLERGIES: SHE IS NOT ALLERGIC TO ANY MEDICATIONS. MEDICATIONS AT HOME: She is on aspirin 81 daily, atorvastatin 10 mg daily, Plavix 75 daily, vitamin D, daily, folic acid 1 mg daily, losartan 50 mg daily, metformin 500 daily, metoprolol 100 mg daily and multivitamin. SOCIAL HISTORY: She used to be a smoker in the past. Denies alcohol use. PHYSICAL EXAMINATION: GENERAL: The patient is awake, alert, oriented, communicative. VITAL SIGNS: The patient is afebrile, pulse 63, respirations 20, blood pressure 133/61. LUNGS: Bilateral fair airflow. HEART: S1 and S2 audible. ABDOMEN: Soft. Nontender. No rebound. No guarding. NEUROLOGICAL: She is awake, alert, oriented, able to communicate. LABORATORY EXAM: WBC is 5.1, hemoglobin 10.6, hematocrit 32.2, platelet count 161. Chemistry: Sodium 139, potassium 4.2, chloride 106, CO2 of 27, BUN 17, creatinine 0.5, blood sugar 109, calcium 9.8. X-ray chest shows spiculated mass in the right upper lobe, lateral compared to the high resolution CT scan done earlier. ASSESSMENT: 1. Chest pain. Rule out underlying ischemia. 2. Hypertension. 3. Hyperlipidemia. 4. Right lung mass, status post biopsy. X-ray chest negative for pneumonia and/or pneumothorax. PLAN: The patient will be placed on observation. We will resume her medication. We will start her antiinflammatory and follow up her cardiac enzyme. Dr. Robertson has been consulted. I will follow up the patient in the a.m. Melissa Duran MD
[2017-12-01 02:20] LABS: URINE BILIRUBIN NEGATIVE (NEGATIVE); URINE BLOOD NEGATIVE (NEGATIVE); URINE GLUCOSE (UA) NEGATIVE (NEGATIVE); URINE LEUKOCYTE ESTERASE MODERATE Leu/uL (NEGATIVE); URINE PROTEIN NEGATIVE mg/dL (<30 mg/dL); URINE UROBILINOGEN 0.2 E.U./dL (<1 E.U./dL)
[2017-12-01 02:27] LABS: URINE APPEARANCE SL CLOUDY (CLEAR); URINE COLOR YELLOW (YELLOW)
[2017-12-01 02:48] LABS: URINE BACTERIA FEW (NEG); URINE RBC 0 - 2 /hpf (0-2); URINE WBC 15 - 20 /hpf (0-6)
[2017-12-01 06:08] VITALS: O2SAT 97
[2017-12-01 08:00] LABS: ALB/GLOB RATIO 1.3 (1.1-1.8); ALBUMIN 3.9 g/dL (3.0-4.8); ALT/SGPT 21 U/L (7-56); AST/SGOT 30 U/L (14-36); BLOOD UREA NITROGEN 15 mg/dL (7-21); CALCIUM 9.6 mg/dL (8.4-10.5); GFR NON-AFRICAN AMERICAN > 60
[2017-12-01] MEDS: Insulin Lispro (humaLOG) MEDIUM Coverage SC SCH ×3 (08:00→18:26)
[2017-12-01 08:06] LABS: FREE T4 1.43 ng/dL (0.78-2.19)
--- NOTE | 2017-12-01 08:59 | CARD ---
APPROVED REPORT Date of service: 11/30/2017 EKG Measurement Heart [id number] <Conclusion> Normal sinus rhythm Normal ECG No change except the rate is faster
[2017-12-01] MEDS ORDERED: IRON PO SCH (10:00)
[2017-12-01] MEDS ORDERED: MULTIVITAMIN PO SCH (10:00)
[2017-12-01] MEDS ORDERED: FOLIC ACID PO SCH (10:00)
[2017-12-01] MEDS ORDERED: Multivitamin With Minerals Tab PO SCH (10:00)
[2017-12-01] MEDS: Metoprolol Succinate 100 mg XL Tab PO SCH (10:00)
[2017-12-01] MEDS ORDERED: Iohexol 300 100 ML IJ ONE (10:30)
--- NOTE | 2017-12-01 11:31 | CON ---
DATE: 12/01/2017 HISTORY OF PRESENT ILLNESS: The patient is an 81-year-old woman who presents with right-sided chest discomfort. Apparently, the patient underwent lung biopsy in the past couple of days. Two to 3 days later, the patient complained of pleuritic-like chest pain which radiates to the back, increasing with movement, increasing with inspiration and increasing with cough. No anginal-like symptoms are noted. PAST MEDICAL HISTORY: The patient's past medical history includes history of PTCA and stent 2 months ago of the RCA with a bare-metal stent in preparation for her biopsy. She is back on aspirin. Her symptoms are unlike her anginal symptoms. She does suffer from hypertension and hypercholesterolemia. SOCIAL HISTORY: The patient does not smoke. REVIEW OF SYSTEMS: A 14-point review of systems is reviewed in detail. No cardiac symptomatology is noted. PHYSICAL EXAMINATION: VITAL SIGNS: Stable. NECK: Negative JVD. LUNGS: Without rales. HEART: S1, S2. EXTREMITIES: Without edema. LABORATORY: EKG shows normal sinus rhythm with nonspecific ST-T changes. Troponin is negative x1. The rest of her laboratories are unremarkable. IMPRESSION 1. Pleuritic-like chest pain. 2. Status post biopsy recently. 3. Lung mass. 4. Stable angina. 5. No evidence for acute coronary syndrome. 6. History of multivessel percutaneous transluminal coronary angioplasty and stent in the past. Given these findings: 1. We will obtain a CT scan of the chest. 2. We will obtain a second troponin. It is unlikely her chest pain is due to coronary ischemia. Sal Robertson MD
--- NOTE | 2017-12-01 11:43 | CT ---
Date of service: 12/01/17 CT chest without IV contrast Indication: Status post biopsy Technique: Contiguous axial images were obtained through the chest without intravenous contrast enhancement. Sagittal and coronal reconstructions were generated and reviewed. This CT exam was performed using 1 or more of the following dose reduction techniques: Automated exposure control, adjustment of the MAA and/or kV according to patient size, and/or use of iterative reconstruction technique. Radiation dose (DLP): 179.64 MGy-cm. Comparison: Chest x-ray performed 11/30/17, PET CT performed 08/18/17, CT chest with contrast performed 06/24/17 Findings: Visualized portions of the inferior thyroid gland appear heterogeneous with multiple low-density nodules. The mediastinal and hilar vascular structures appear within normal limits. The heart appears within normal limits of size. Dense coronary artery calcifications. Probable 7 mm right hilar lymph node. Spiculated right upper lobe mass measures approximately 2.3 x 2.4 cm (series 4, image 29). Small focus of air appears adjacent to the pleural surface at the level of this mass possibly tiny contained pneumothorax versus small pneumatocele post biopsy. Subcutaneous emphysema right upper chest wall consistent with recent biopsy. No pleural effusion. Small hiatal hernia/distal esophageal wall thickening. Limited visualization of the noncontrast upper abdomen; Hypoattenuation of the liver compatible with hepatic steatosis. Too small to characterize right renal hypodensities, statistically likely cysts. Atrophic pancreas. Contracted gallbladder. Mild degenerative changes. Impression: Spiculated right upper lobe mass measures approximately 2.3 x 2.4 cm, appears increased in size as compared to CT performed 06/18/17. Small focus of air appears adjacent to the pleural surface at the level of this mass possibly tiny contained pneumothorax versus small pneumatocele post biopsy. Subcutaneous emphysema right upper chest wall consistent with recent biopsy. Probable 7 mm right hilar lymph node. Small hiatal hernia/distal esophageal wall thickening. Limited visualization of the noncontrast upper abdomen; Hypoattenuation of the liver compatible with hepatic steatosis. Too small to characterize right renal hypodensities, statistically likely cysts. Atrophic pancreas. Contracted gallbladder. Visualized portions of the inferior thyroid gland appear heterogeneous with multiple low-density nodules.
[2017-12-01 12:06] VITALS: RESP 20
[2017-12-01 18:26] VITALS: BP 154/75; PULSE 64; TEMP 98.6
--- NOTE | 2017-12-01 23:22 | DS ---
HISTORY OF PRESENT ILLNESS: The patient is 81 years old, seen and examined, complaining of pain in the right upper chest area where she had biopsy done, going through her chest towards the back. Complaining of getting short of breath when she has pain. Otherwise, no nausea, no vomiting. No diarrhea. Eating and tolerating. PHYSICAL EXAMINATION: VITAL SIGNS: She is afebrile. Pulse 67, respirations 20, blood pressure 154/57. LUNGS: Bilateral good airflow. No rhonchi or crackle. HEART: S1, S2 audible. ABDOMEN: Soft, nontender. No rebound, no guarding. NEUROLOGIC: She is awake, alert, oriented, communicative. She has bruise in the right upper lung area. LABORATORY DATA: WBC 5.1, hemoglobin 10, hematocrit 32, platelet 161. Chemistries, blood sugar is 127. The patient had CT scan of the chest done that shows right upper lung mass, spiculated, very tiny pneumothorax, but it is a small pneumatocele, status post biopsy. Small hiatal hernia, distal esophageal wall thickening. ASSESSMENT AND PLAN: 1. Chest pain, noncardiac, probably because of the local bruising. 2. Right lung mass. 3. Hypertension. 4. Hyperlipidemia. 5. Non-insulin dependent diabetes. PLAN: The patient is doing well. Her pain is mostly chest wall pain secondary to the bruising at the site of biopsy. She will be discharged home on Toradol and she will be discharged home on tramadol as needed. We will follow up the patient in office next week. Melissa Duran MD
== END 2017-12-01 19:20 | disposition home or self-care (01) ==
LOC: ED 11:25 → ERH 13:49 → 2RSO 17:50
PROVIDERS: ADMIT Internal Medicine; ATTEND Internal Medicine
DX: R07.89 Other chest pain (principal); R91.1 Solitary pulmonary nodule; E11.9 Type 2 diabetes mellitus without complications; E78.5 Hyperlipidemia, unspecified; I10 Essential (primary) hypertension; I25.10 Atherosclerotic heart disease of native coronary artery without angina pectoris; Z79.02 Long term (current) use of antithrombotics/antiplatelets; Z79.82 Long term (current) use of aspirin; Z79.84 Long term (current) use of oral hypoglycemic drugs; Z79.899 Other long term (current) drug therapy; Z87.891 Personal history of nicotine dependence; Z95.5 Presence of coronary angioplasty implant and graft; Z82.49 Family history of ischemic heart disease and other diseases of the circulatory system
CPT/HCPCS: 36415; 71045; 71260; 80053; 81001; 82550; 82948; 83036; 83615; 83735; 84439; 84443; 84484; 85025; 93005; 99285; G0378; Q9967